=== PATIENT | female | born 1980 | race Caucasian/White ===

== ENCOUNTER 2020-01-21 01:45 | Emergency (ER) | payer OTHER, MEDICAID ==
[~2020-01-21] VITALS: Ht 165.1 cm; Wt 94.3 kg
--- NOTE | 2020-01-21 01:50 | NUR ---
Patient to ER bed 4 to gown for evaluation. Side rails up.
--- NOTE | 2020-01-21 01:50 | NUR ---
ER Dr. MENDEZ at bedside examining patient.
--- NOTE | 2020-01-21 01:55 | NUR ---
PT ARRIVES TO ER C/O FEELING ANXIOUS AND HAVING A PANIC ATTACK AFTER SMOKING TWO BLUNTS EARLIER TODAY. PT APPEARS TO BE ALERT AND ORIENTED X4 WITH RAPID SPEECH. NO ACUTE SIGNS OF DISTRESS. PT HX CKD, THYROID, AND DIABETES. NO OTHER MEDICAL COMPLAINTS AT THIS TIME.
--- NOTE | 2020-01-21 01:55 | NUR ---
Note dianaone in EDM - 01/21/20 at 0209 by LYNN PT ARRIVES TO ER C/O FEELING ANXIOUS AND HAVING A PANIC ATTACK AFTER SMOKING TWO BLUNTS EARLIER TODAY. PT HX CKD, THYROID, AND DIABETES. NO OTHER MEDICAL COMPLAINTS AT THIS TIME.
[2020-01-21 01:56] VITALS: BP_SYST 138
[2020-01-21] MEDS ORDERED: OLANZapine 5 MG TABLET PO ONE (02:00)
[2020-01-21] MEDS ORDERED: OLANZapine 5 MG TABLET ONE (02:22)
[2020-01-21 02:24] VITALS: BP_SYST 138
--- NOTE | 2020-01-21 02:24 | NUR ---
Patient given written and verbal discharge instructions and verbalizes understanding. ER MD discussed with patient the results and treatment provided. Patient in stable condition. ID arm band removed. Rx of ZYPREXA given. Patient educated on pain management and to follow up with PMD. Pain Scale 0/10. Opportunity for questions provided and answered. Medication side effect fact sheet provided.
== END 2020-01-21 02:24 | disposition home or self-care (01) ==
LOC: SED 01:45
DX: R06.4 Hyperventilation (principal); F41.9 Anxiety disorder, unspecified; F31.9 Bipolar disorder, unspecified; F17.210 Nicotine dependence, cigarettes, uncomplicated
CPT/HCPCS: 99283

== ENCOUNTER 2022-01-24 11:22 | Emergency (ER) | payer OTHER, MEDICAID ==
[~2022-01-24] VITALS: Ht 165.1 cm; Wt 100.7 kg
[2022-01-24 11:22] VITALS: BP_SYST 136
--- NOTE | 2022-01-24 11:22 | NUR ---
BROUGHT BACK TO BED #7 AND TRIAGED. REPORT GIVEN TO MIKE
--- NOTE | 2022-01-24 11:28 | NUR ---
PT STATES SHE HAD A MECHANICAL SLIP AND FALL LAST NIGHT, NOW WITH RIGHT KNEE AND ANKLE PAIN, ABRASIONS NOTED TO LEFT KNEE. PT IS AMBULATORY WITH STEADY GAIT. PT STATES SHE CAN NOT TAKE ANY NARCOTICS, SHE LIVES IN A SOBER LIVING AND IS SOBER FOR LAST 5 MONTHS.
--- NOTE | 2022-01-24 11:29 | NUR ---
ER at bedside examining patient.
--- NOTE | 2022-01-24 13:10 | NUR ---
DR VELÁSQUEZ AT BEDSIDE FOR RE-EVALUATION
[2022-01-24] MEDS ORDERED: TRAM50TA2 PO (13:32)
[2022-01-24] MEDS ORDERED: IBUP-1969 PO (13:32)
--- NOTE | 2022-01-24 13:50 | NUR ---
Patient given written and verbal discharge instructions and verbalizes understanding. ER MD discussed with patient the results and treatment provided. Patient in stable condition. ID arm band removed Rx of IBUPROFEN, TRAMADOL given. Patient educated on pain management and to follow up with PMD. Pain Scale 0/10. Opportunity for questions provided and answered. Medication side effect fact sheet provided.
== END 2022-01-24 13:50 | disposition home or self-care (01) ==
LOC: SED 11:22
DX: S83.91XA Sprain of unspecified site of right knee, initial encounter (principal); S93.401A Sprain of unspecified ligament of right ankle, initial encounter; W01.0XXA Fall on same level from slipping, tripping and stumbling without subsequent striking against object, initial encounter; Y93.89 Activity, other specified; Y92.89 Other specified places as the place of occurrence of the external cause; Y99.8 Other external cause status
CPT/HCPCS: 73564; 99284

== ENCOUNTER 2022-05-10 21:07 | Inpatient (IN) | payer OTHER, MEDICAID ==
[~2022-05-10] VITALS: Ht 165.1 cm; Wt 107.5 kg
[~2022-05-10 21:07] MED LIST: IBUP-1969 PO; TRAM50TA2 PO
[2022-05-10 21:16] VITALS: BP_SYST 148
--- NOTE | 2022-05-10 21:26 | NUR ---
Patient triaged and placed in rm 5. VSS and patient appears in no acute distress at this time. MD Ocampo notified of need for MSE. Report given to HORACE Taylor.
--- NOTE | 2022-05-10 21:30 | NUR ---
Poison control was called and spoke to Marixa with recommendations for lab work, UDA/UA, monitor for seizure activity, EKG and repeat x6 hours. MD Ocampo aware.
--- NOTE | 2022-05-10 21:38 | NUR ---
RECEIVED REPORT FROM CYBER SECURITY INSTRUCTOR. ARRIVED VIA EMS FROM FACILITY FOR POSSIBLE DRUG OVERDOSE. PER FACILITY PATIENT TOOK BENADRYL (UNKNOWN EXACT AMT). ALERT BUT INCOMPREHENSIBLE SPEECH NOTED. SHE IS ORIENTED TO NAME ONLY. POOR HISTORIAN. NUMEROUS ATTEMPTS TO GET OUT OF BED. REDIRECTED BACK TO BED. MD AT BEDSIDE. BED IN LOW POSITION, WHEELS LOCKED AND SR UP X 2 FOR SAFETY. WILL MONITOR. AWAITING MD ORDERS.
--- NOTE | 2022-05-10 21:56 | NUR ---
AMBULATORY W/ UNSTEADY GAIT AND 1 ASSIST TO PROVIDE UA. UA OBTAINED AND ASSISTED HER BACK TO STRETCHER. UA LABELED AND TAKEN TO LAB.
--- NOTE | 2022-05-10 22:08 | NUR ---
PATIENT REQUESTING SOMETHING TO DRINK. APPLE JUICE REQUESTED. ABLE TO TOLERATED 2 CUPS OF APPLE JUICE WITHOUT DIFFICULTY.
[2022-05-10 22:26] LABS: BILIRUBIN,URINE NEGATIVE (NEGATIVE); BLOOD, URINE NEGATIVE (NEGATIVE); CLARITY/URINE CLEAR (CLEAR); COLOR,URINE YELLOW (YELLOW); GLUCOSE,URINE NEGATIVE (NEGATIVE); KETONES,URINE TRACE (NEGATIVE); LEUKOCYTE ESTERASE ,URINE NEGATIVE (NEGATIVE); NITRITE, URINE NEGATIVE (NEGATIVE); PROTEIN URINE NEGATIVE (NEGATIVE); UROBILINOGEN,URINE 0.2 (0.2-1.0)
--- NOTE | 2022-05-10 22:34 | NUR ---
AMBULATORY TO AND FROM RESTROOM. GAIT UNSTEADY. RETURN BACK TO STRETCHER. BED IN LOW POSITION, WHEELS LOCKED AND SR UP X 2. REDIRECTION PROVIDED TO STAY ON STRETCHER FOR SAFETY. ALTHOUGH HER SPEECH IS SOMEWHAT INCOMPREHENSIBLE BUT SHE VERBALIZES UNDERSTANDING AND AGREES TO STAY ON STRETCHER.
[2022-05-10 22:45] LABS: BARBITURATE, URINE NEGATIVE (NEG <=200); BENZODIAZEPINE, URINE POSITIVE (NEG <=150); CANNABINOID, URINE NEGATIVE (NEG <=50); COCAINE, URINE NEGATIVE (NEG <=150); METHAMPHETAMINES SCREEN,URINE NEGATIVE (NEG <=500); URINE AMPHETAMINE NEGATIVE (NEG <=500); URINE METHADONE NEGATIVE (NEG <=200)
[2022-05-10 22:46] LABS: OPIATE, URINE NEGATIVE (NEG <=100); PHENCYCLIDINE SCREEN,URINE NEGATIVE (NEG <=25); UR TRICYCLIC ANTIDEPRESSANTS NEGATIVE (NEG <=300); URINE OXYCODONE SCREEN NEGATIVE (NEG <=100); URINE PROPOXYPHENE SCREEN NEGATIVE (NEG <=300)
[2022-05-10 22:48] LABS: HEMATOCRIT 40.8 % (36-48); MEAN CORPUSCULAR VOLUME 92 fL (79.0-98.0); PLATELET COUNT (AUTO) 327 K/uL (130-430); RED BLOOD CELL COUNT(AUTO) 4.44 MIL/uL (4.2-6.2); RED CELL DISTRIBUTION WIDTH 16.2 % (9.0-15.0)
--- NOTE | 2022-05-10 22:50 | NUR ---
PATIENT AMBULATORY TO BATHROOM WITH 1 ASSIST. WHILE THIS MARBLE POLISHER IS STANDING BY BATHROOM TO ALLOW PATIENT PRIVACY, PATIENT KNOCKING ON BATHROOM DOOR. UPON OPENING DOOR PATIENT NOTED TO BE SITTING ON FLOOR. STATES "I FELL." ASSISTED TO WHEELCHAIR VIA SECURITY. PATIENT ABLE TO STAND AND PIVOT TO WHEELCHAIR. NOTED DIME SIZE BRUISE TO RIGHT ANTERIOR KNEE. NO OBVIOUS DEFORMITY NOTED. NO OTHER INJURIES NOTED. SHE DENIES HITTING HER HEAD OR LOC. SHE IS ASSISTED BACK TO STRETCHER VIA SECURITY. ABLE TO STAND AND PIVOT BACK TO STRETCHER. WEALTH MANAGEMENT ADVISOR, ACETYLENE TORCH SOLDERER, AND MD AWARE. STRONGLY ENCOURAGE PATIENT NOT TO GET OUT OF BED. BED IN LOW POSITION, WHEELS LOCKED AND SR UP X 2. VSS. EKG BEING PERFORMED AT BEDSIDE. CAMERA ON TO OBSERVE CLOSELY. WILL CONTINUE TO MONITOR.
[2022-05-10 22:55] LABS: ANION GAP 16 (5-15); CALCIUM 8.3 mg/dL (8.4-11.0); CHLORIDE 104 mmol/L (98-107); CREATININE 2.76 mg/dL (0.55-1.30); GLUCOSE 238 mg/dL (70-99); POTASSIUM 3.5 mmol/L (3.5-5.1); UREA NITROGEN, BLOOD 30 mg/dL (8-21)
[2022-05-10 22:58] LABS: WHITE BLOOD COUNT (AUTO) 35.3 K/uL (4.8-10.8)
[2022-05-10 23:00] LABS: ALANINE AMINOTRANSFERASE 22 U/L (12-78); ALBUMIN 2.7 g/dL (3.4-4.8); ASPARTATE AMINOTRANSFERASE 21 U/L (10-37); GFR AFRICAN AMERICAN 24 mL/min (>90); TOTAL BILIRUBIN 0.3 mg/dL (0.0-1.0)
[2022-05-10 23:03] LABS: ACETAMINOPHEN < 1 ug/mL (1-30); ALCOHOL, BLOOD < 3 mg/dL (<10)
--- NOTE | 2022-05-10 23:13 | NUR ---
ENRIQUE SWABBED AND SENT TO LAB
[2022-05-10] MEDS ORDERED: NACL 0.9% 2,000 ML IV ONE (23:15)
[2022-05-10] MEDS ORDERED: PIPERACILLIN/TAZO 3.375 GM in NS 50 ML IV ONE (23:15)
[2022-05-10] MEDS ORDERED: PIPERACILLIN/TAZOBACTAM 3.375 GM/VIAL (ZOSYN) IV ONE (23:31)
[2022-05-10 23:47] LABS: BAND % (MANUAL) 17 % (0-6); LYMPHOCYTES % (MANUAL) 12 % (20-46)
[2022-05-10 23:48] LABS: BASOPHILS % (MANUAL) 0 % (0-2); EOSINOPHILS % (MANUAL) 0 % (0-7); METAMYELOCYTES % 4 % (0-0); MONOCYTES % (MANUAL) 3 % (0-11)
[2022-05-11] MEDS ORDERED: ASPIRIN 325 MG TABLET PO ONE
--- NOTE | 2022-05-11 00:52 | NUR ---
LAB AT BEDSIDE.
--- NOTE | 2022-05-11 00:54 | NUR ---
PT TRANSPORTED TO CT VIA STRETCHER VIA [facility].
--- NOTE | 2022-05-11 01:52 | NUR ---
PATIENT ATTEMTED TO GET OUT OF BED. BM ON STRETCHER AND ON PATIENT. BSC TO BEDSIDE. ASSISTED HER TO BSC. LARGE GREEN BM NOTED. PERICARE PROVIDED. ASSISTED BACK TO STRETCHER. BED IN LOW POSITION, WHEELS LOCKED AND SR UP X 2 FOR SAFETY. WILL MONITOR CLOSELY. Addendum: 05/11/22 at 0329 by [email or web address] PATIENT ATTEMPTS TO GET OUT OF BED. BM ON STRETCHER AND ON PATIENT. BSC TO BEDSIDE. ASSISTED HER TO BSC. LARGE GREEN BM NOTED. PERICARE PROVIDED. ASSISTED BACK TO STRETCHER. BED IN LOW POSITION, WHEELS LOCKED AND SR UP X 2 FOR SAFETY. WILL MONITOR CLOSELY.
--- NOTE | 2022-05-11 03:29 | NUR ---
ASSISTED TO BEDPAN. VOID NOTED. PERICARE PROVIDED. LYING SUPINE ON STRETCHER RESTING WITH EYES CLOSED. EASILY AROUSED. VSS. NAD NOTED AT THIS TIME. BED IN LOW POSITION, WHEELS LOCKED AND SR UP X2 FOR SAFETY. WILL CONTINUE TO MONITOR.
[2022-05-11] MEDS ORDERED: VANCOMYCIN HCL 1,000 MG in NS 250 ML IV ONE (04:00)
[2022-05-11] MEDS ORDERED: VANCOMYCIN HCL 1000 MG/VIAL IV ONE (04:09)
--- NOTE | 2022-05-11 04:14 | NUR ---
Admit bed requested Patient will be admitted to care of Admitted to Telemetry unit. Diagnosis Leukocytosis Inpatient (Yes or No) yes Observation (Yes or No) no Orientation concerns or request close to nursing station (Yes or No) yes Covid Status negative On vent or bipap no Isolation requirements no Needs a sitter no From Home (Yes or if No enter name of facility) no Requires Dialysis (Yes or No) no Med Rec Completed (Yes of No) unable to obtain
[2022-05-11 04:22] LABS: MEAN CORPUSCULAR VOLUME 92 fL (79.0-98.0); PLATELET COUNT (AUTO) 310 K/uL (130-430); RED BLOOD CELL COUNT(AUTO) 3.94 MIL/uL (4.2-6.2); RED CELL DISTRIBUTION WIDTH 16.2 % (9.0-15.0)
--- NOTE | 2022-05-11 04:26 | NUR ---
LAB CALLED TO REPORT CRITICAL WBC 35. AWARE. NO NEW ORDERS AT THIS TIME.
[2022-05-11] MEDS: D5/0.45 NS 1,000 ML IV SCH ×2 (04:32→17:03)
[2022-05-11 05:04] LABS: CALCIUM 7.6 mg/dL (8.4-11.0); CREATININE 2.23 mg/dL (0.55-1.30)
--- NOTE | 2022-05-11 05:15 | NUR ---
Patient will be admitted to care of admitting md. Admitted to tele unit. Will go to room 113b. Belongings list completed. Complete and up to date summary report printed. SBAR report to be given at bedside to beverly huerta with opportunity for questions.
[2022-05-11 05:34] VITALS: BP_SYST 143
--- NOTE | 2022-05-11 05:45 | NUR ---
pt.arrival via er-dept.pt.presents general status stable. respiratory status stable@room air.pt.presents psych hx.@present pt.awake,alert but withdrawn to q's.pt.presents iv access intact;patent.iv fluids infusing.no c/o pain,nausea.no requests posited@this hour.pt.oriented to unit/room.call light/telephone placed w/in access of the pt.
[2022-05-11] MEDS ORDERED: PIPERACILLIN/TAZO 3.375/DEX-IS 50 ML IV SCH (06:00)
[2022-05-11] MEDS ORDERED: PIPERACILLIN/TAZOBACTAM 3.375 GM/VIAL (ZOSYN) IV ONE (06:30)
[2022-05-11 08:00] VITALS: BP_SYST 127
--- NOTE | 2022-05-11 08:00 | NUR ---
INITIAL RECEIVED PATIENT A/O X3, ABLE TO VERBALIZES NEEDS, NO C/O PAIN/SOB, VITAL W/IN LIMITS. IV TO RIGHT HAND PATENT. PATIENT REPOSITION, CONTINUE TO MONITOR, CALL LIGHT W/IN REACHED AND BED IN LOW POSITION.
[2022-05-11] MEDS: PIPERACILLIN/TAZO 3.375/DEX-IS 50 ML IV SCH ×4 (08:14→23:22)
--- NOTE | 2022-05-11 10:30 | NUR ---
IV- Iv was out. Patient was very hard stick. Will inform MD.
--- NOTE | 2022-05-11 10:47 | NUR ---
MD Rounds Dr. Lockett here and making rounds.
[2022-05-11] MEDS ORDERED: OLAN20TA3 PO (11:25)
[2022-05-11] MEDS ORDERED: SER100 PO (11:25)
[2022-05-11] MEDS ORDERED: DIVA500T4 PO ×2 (11:25)
[2022-05-11] MEDS ORDERED: LAM100 PO (11:25)
[2022-05-11] MEDS ORDERED: NEU300 PO (11:25)
[2022-05-11] MEDS: DIVALPROEX SODIUM 500 MG TAB.SR.24H (DEPAKOTE ER) PO SCH ×2 (11:30→22:46)
[2022-05-11] MEDS ORDERED: POTASSIUM CHLORIDE 20 MEQ TAB.PRT.SR PO ONE (11:30)
[2022-05-11 11:41] VITALS: BP_SYST 116
[2022-05-11 11:41] LABS: PROTHROMBIN TIME 10.5 SECS (9.5-12.5)
--- NOTE | 2022-05-11 11:50 | NUR ---
CONSULTATION PAGED REASON FOR CONSULTATION ABDOMINAL PAIN WAS CONSULT CALED?Y PERSON WHO WAS NOTIFIED:REY CONSULTING PHYSICIAN:BUFFY OSWALD WASTE WATER PLANT OPERATOR SPECIALTY:GI WASTE WATER PLANT OPERATOR PHONE NUMBER:[phone] REQUESTING PHYSICIAN:JASON COYLE
[2022-05-11] MEDS ORDERED: DIVALPROEX SODIUM 500 MG TAB.SR.24H (DEPAKOTE ER) PO ONE (12:45)
[2022-05-11] MEDS ORDERED: POLYETHYLENE GLYCOL 3350, 17 GM/ POWD.PACK PO ONE (12:45)
--- NOTE | 2022-05-11 13:04 | NUR ---
Notes/laxative-Pt refused miralax, Patient has been having bowel movement since this morning.
--- NOTE | 2022-05-11 14:01 | NUR ---
Flatwork Assembler TILE MASON received referral to see pt. for possible OD on Benedryl while at her sober living home. TILE MASON introduced self to pt who was sitting upright on her bed eating lunch. Pt. was talking making sense and at times, and at other times she was not making sense. Additionally, pt was at times unable to form the words and would just speak without saying words. It should be noted pt. could not hold TILE MASON business card or her socks. Pt. would keep dropping them. Pt. stated she wanted to get out of the hospital. TILE MASON told her to stay so she can get well. Pt. mentioned she has 3 girls who reside with her mom and dad. They are ages 17 Tricia, a 19 year old and a 20 year old. Pt. stated she lives at [facility] for 15 years now. Then Pt. stated she goes to [facility] in the day and sees a therapist, Kimberly on , and Wed and sees a Psychiatrist . Dr. Arias. She walks or gets to [facility] by bus or walking. She resides at a sober living, could not recall the name. Pt thinks the name is [facility], address on Face Sheet. TILE MASON spoke to Gauri Ramirez to alert her to [facility] that pt. kept seeing "A man in the corner of the room" while TILE MASON was speaking to her. TILE MASON also shared with Ashley that pt. takes bipolar meds, but does not like the way they make her feel so she will stop taking them. Pt. took the Bendryl because she stated, "She wanted to sleep, but not kill self" and now she is upset because she had 8 months sobriety and now she has to start over again.
--- NOTE | 2022-05-11 14:15 | NUR ---
PSYCH CALLED TELE PSYCH CONSULT WAITING MD TO CALL BACK
[2022-05-11] MEDS: GABAPENTIN 300 MG CAPSULE PO SCH ×3 (14:24→22:46)
--- NOTE | 2022-05-11 15:24 | NUR ---
Notes/rounds Walking in he room with steady gait. Denies any pain at this time, still waiting for picc line nurse to come.
[2022-05-11 16:35] VITALS: BP_SYST 118
--- NOTE | 2022-05-11 18:13 | NUR ---
CLOSING NOTES PATIENT RESTING IN BED, NO C/O OF PAIN/SOB AT THIS TIME. PICC LINE INFUSING TO RIGHT UPPER ARM PATENT. ALL SAFETY MEASURES ARE IN PLACE. WILL CONTINUE TO MONITOR, AND ENDORSE TO ONCOMING NURSE.
--- NOTE | 2022-05-11 19:47 | NUR ---
RECEIVED PT STANDING AT EDGE OF BED, NO DISTRESS NOTED, DENIES PAIN. AAAOX4 RUE DOUBLE LUMEN PICC SITE CDI.
[2022-05-11 20:00] VITALS: BP_SYST 126
[2022-05-11] MEDS: OLANZapine 10 MG TAB.RAPDIS PO SCH (21:00)
[2022-05-11] MEDS: LamoTRIgine 100 MG TABLET PO SCH (22:47)
[2022-05-11] MEDS: QUEtiapine FUMARATE 100 MG TABLET PO SCH (22:47)
--- NOTE | 2022-05-11 22:47 | NUR ---
JASON ELIZABETH DR. AT THIS TIME Addendum: 05/11/22 at 2253 by Jase Gonsales RN DR. JOHNSON ANSWERS AT THIS TIME
--- NOTE | 2022-05-11 22:54 | NUR ---
2255: PT HR HAS BEEN BETWEEN 125-135 MICHELLE FELICIANO FOR CARDIZEM OR A BETA DAMIAN.
[2022-05-11] MEDS: DILTIAZEM HCL 30 MG TABLET PO SCH (23:33)
[2022-05-12] MEDS: D5/0.45 NS 1,000 ML IV SCH ×2 (00:15→10:15)
[2022-05-12 01:05] VITALS: BP_SYST 132
[2022-05-12] MEDS: PIPERACILLIN/TAZO 3.375/DEX-IS 50 ML IV SCH ×3 (05:47→18:16)
[2022-05-12] MEDS: DILTIAZEM HCL 30 MG TABLET PO SCH ×3 (05:52→22:06)
[2022-05-12 07:21] LABS: BASOPHILS # (AUTO) 0.1 K/uL (0.0-0.2); BASOPHILS % (AUTO) 0.3 % (0.0-2.0); EOSINOPHILS # (AUTO) 0.1 K/uL (0.0-0.4); EOSINOPHILS % (AUTO) 0.3 % (0.0-4.0); HEMATOCRIT 33.6 % (36-48); LYMPHOCYTES # (AUTO) 2.4 K/uL (1.0-5.5); LYMPHOCYTES % (AUTO) 9.1 % (20.5-51.5); MEAN CORPUSCULAR VOLUME 92 fL (79.0-98.0); MONOCYTES # (AUTO) 2.4 K/uL (0.0-1.0); MONOCYTES % (AUTO) 9.4 % (1.7-9.3); NEUTROPHILS # (AUTO) 20.9 K/uL (1.8-7.7); NEUTROPHILS % (AUTO) 80.9 % (40.0-70.0); PLATELET COUNT (AUTO) 228 K/uL (130-430); RED BLOOD CELL COUNT(AUTO) 3.64 MIL/uL (4.2-6.2); RED CELL DISTRIBUTION WIDTH 15.9 % (9.0-15.0); WHITE BLOOD COUNT (AUTO) 25.9 K/uL (4.8-10.8)
[2022-05-12 08:05] LABS: CALCIUM 8.2 mg/dL (8.4-11.0); CREATININE 2.2 mg/dL (0.55-1.30)
[2022-05-12 08:56] LABS: POTASSIUM 2.9 mmol/L (3.5-5.1)
[2022-05-12] MEDS: LamoTRIgine 100 MG TABLET PO SCH ×2 (09:00→22:05)
[2022-05-12] MEDS: GABAPENTIN 300 MG CAPSULE PO SCH ×2 (09:00→22:07)
[2022-05-12] MEDS: POLYETHYLENE GLYCOL 3350, 17 GM/ POWD.PACK PO SCH (09:00)
[2022-05-12] MEDS: DIVALPROEX SODIUM 500 MG TAB.SR.24H (DEPAKOTE ER) PO SCH ×2 (09:01→22:06)
[2022-05-12 09:04] LABS: ERYTHROCYTE SEDIMENTATION RATE 32 MM/HR (0-20)
[2022-05-12] MEDS ORDERED: KCL 40 mEq in 100 mL (PREMIX) 100 ML IV ONE (09:15)
[2022-05-12 09:44] LABS: C-REACTIVE PROTEIN QUANT 38.1 mg/dL (0-0.5)
[2022-05-12] MEDS ORDERED: PANTOPRAZOLE SODIUM 40 MG/VIAL (PROTONIX) IVP ONE (10:30)
[2022-05-12] MEDS: OLANZapine 10 MG TAB.RAPDIS PO SCH ×2 (11:41→22:05)
[2022-05-12 12:00] VITALS: BP_SYST 132
--- NOTE | 2022-05-12 12:36 | NUR ---
PATIENT IS AT HER BASELINE LEVEL OF INDEPENDENT FUNCTIONAL MOBILITY. SHE IS SAFE TO CONTINUE TO AMBULATE AND TRANSFER WITH NURSING SUPERVISION. NO NEED FOR FURTHER PHYSICAL THERAPY.
[2022-05-12 19:30] VITALS: BP_SYST 139
--- NOTE | 2022-05-12 19:40 | NUR ---
PM ASSESSMENT; -Pt is a/ox4, resting in bed. Pt denies any chest pain,pain,sob,or any cute distress. NATASHA PICC LINE patent,no s/s any infiltration noted. Discussed poc, NPO after midnight for EGD, she verbalize understanding. Fall precaution in place. Bed alarmed, side rails x3,call light w/in reach. Cont to monitor pt.
[2022-05-12] MEDS: QUEtiapine FUMARATE 100 MG TABLET PO SCH (22:05)
[2022-05-13] VITALS: BP_SYST 134
--- NOTE | 2022-05-13 | NUR ---
ROUNDS; NPO STATUS -Pt is resting in bed. Pt denies any chest pain,pain,sob,or any cute distress. VSS. IVF infusing well. Kept pt NPO status now for EGD tomorrow, she verbalize understanding. Fall precaution in place. Bed alarmed, side rails x3,call light w/in reach. Cont to monitor pt.
[2022-05-13] MEDS: PIPERACILLIN/TAZO 3.375/DEX-IS 50 ML IV SCH ×5 (01:47→23:43)
[2022-05-13] MEDS: D5/0.45 NS 1,000 ML IV SCH ×3 (01:48→17:01)
--- NOTE | 2022-05-13 04:19 | NUR ---
ROUNDS; -Pt is asleep. NO s/s any acute distress noted. Fall precaution in place. Bed alarmed, side rails x3,call light w/in reach. Cont to monitor pt.
[2022-05-13] MEDS: DILTIAZEM HCL 30 MG TABLET PO SCH ×3 (06:00→21:51)
--- NOTE | 2022-05-13 06:15 | NUR ---
NOTES; Pt is resting in bed comfortably. VS bp-116/75,101. pt signed EGD consent form. still NPO since midnight.
--- NOTE | 2022-05-13 06:48 | NUR ---
CLOSING NOTES; -Pt is resting in bed. Pt denies any chest pain,pain,sob,or any cute distress. NATASHA PICC LINE patent,no s/s any infiltration noted. Fall precaution in place. Bed alarmed, side rails x3,call light w/in reach. Will endorse to next nurse to cont care.
[2022-05-13] MEDS ORDERED: SIMETHICONE 40 MG/0.6 ML ML ONE (06:52)
[2022-05-13] MEDS ORDERED: MEPERIDINE 100 MG INJ. 100 MG/ML VIAL ONE (06:52)
[2022-05-13 07:30] LABS: BASOPHILS # (AUTO) 0.1 K/uL (0.0-0.2); BASOPHILS % (AUTO) 0.4 % (0.0-2.0); EOSINOPHILS # (AUTO) 0.1 K/uL (0.0-0.4); EOSINOPHILS % (AUTO) 0.5 % (0.0-4.0); HEMATOCRIT 33.1 % (36-48); LYMPHOCYTES # (AUTO) 2.8 K/uL (1.0-5.5); LYMPHOCYTES % (AUTO) 13.2 % (20.5-51.5); MEAN CORPUSCULAR HEMOGLOBIN 30 pg (27-31); MEAN CORPUSCULAR HGB CONC 33 % (32-36); MEAN CORPUSCULAR VOLUME 91 fL (79.0-98.0); MONOCYTES # (AUTO) 1.2 K/uL (0.0-1.0); MONOCYTES % (AUTO) 5.8 % (1.7-9.3); NEUTROPHILS # (AUTO) 16.8 K/uL (1.8-7.7); NEUTROPHILS % (AUTO) 80.1 % (40.0-70.0); PLATELET COUNT (AUTO) 211 K/uL (130-430); RED BLOOD CELL COUNT(AUTO) 3.62 MIL/uL (4.2-6.2); RED CELL DISTRIBUTION WIDTH 15.4 % (9.0-15.0)
--- NOTE | 2022-05-13 07:30 | NUR ---
Report received from weld engineer RN for continuity of care. No distress noted.
[2022-05-13 07:47] VITALS: BP_SYST 136
[2022-05-13 07:47] LABS: INR 0.9 (0.8-1.2); PROTHROMBIN TIME 9.2 SECS (9.5-12.5)
[2022-05-13] MEDS: MIDAZOLAM HCL 5 MG/5 ML VIAL ONE ×2 (07:48→07:50)
--- NOTE | 2022-05-13 08:27 | NUR ---
Report received from HORACE Sultana for continuity of care. Patient coming back from GI lab.
[2022-05-13] MEDS: POLYETHYLENE GLYCOL 3350, 17 GM/ POWD.PACK PO SCH (09:00)
[2022-05-13 09:31] LABS: ALBUMIN 1.9 g/dL (3.4-4.8); CALCIUM 8.3 mg/dL (8.4-11.0); CREATININE 1.78 mg/dL (0.55-1.30); PHOSPHORUS 2.6 mg/dL (2.7-4.5); POTASSIUM 3.4 mmol/L (3.5-5.1); TOTAL BILIRUBIN 0.3 mg/dL (0.0-1.0)
--- NOTE | 2022-05-13 09:49 | NUR ---
Spoke with Dr. Galan, ACOSTA, regarding patient. Patient to have procalcitonin lab add on for today if possible and blood cultures tomorrow. If lab needs to draw procalcitonin today then have blood cultures as well.
[2022-05-13] MEDS ORDERED: OLANZapine 10 MG TABLET ONE (10:02)
[2022-05-13] MEDS: GABAPENTIN 300 MG CAPSULE PO SCH ×3 (10:06→20:53)
[2022-05-13] MEDS: PANTOPRAZOLE SODIUM 40 MG/VIAL (PROTONIX) IVP SCH (10:06)
[2022-05-13] MEDS: OLANZapine 10 MG TAB.RAPDIS PO SCH ×2 (10:07→21:00)
[2022-05-13] MEDS: LamoTRIgine 100 MG TABLET PO SCH ×2 (10:08→20:53)
[2022-05-13] MEDS: DIVALPROEX SODIUM 500 MG TAB.SR.24H (DEPAKOTE ER) PO SCH ×2 (10:32→21:38)
[2022-05-13 11:18] LABS: ERYTHROCYTE SEDIMENTATION RATE 45 MM/HR (0-20)
--- NOTE | 2022-05-13 11:30 | NUR ---
RADIO ENGINEERING TEACHER In an effort to obtain and confirm information related to patient's mental health history, [facility] contacted [place] . According to Ashanti with [facility] department, patient was discharged from inpatient services on 05/08/2200 and transitioned to [facility] independent living . She shared patient was diagnosed with Schizoaffective Disorder Bipolar type. She was on a 5150 hold due to suicidal thoughts.
[2022-05-13 12:00] VITALS: BP_SYST 128
--- NOTE | 2022-05-13 12:01 | NUR ---
CARDIOVASCULAR RADIOLOGIC TECHNOLOGIST ACSW Brandy responded to a request for Social Service support to address psych recommendation for 5150 hold. ACSW Brandy met with patient at bedside. ACSW completed introduction, reason for referral, provided business card, and patient was open to contact. Mental health- Patient confirms Schizoaffective Disorder, struggled to discuss medication regimen. Thought Content- Auditory and Visual Hallucinations. "Some one is standing right there". Thought Process- Circumstantial ACSW discussed psych recommendations for 5150 hold with patient. Patient was agreeable. ACSW and Patient discussed "reality testing", and she shared she will ask others around her if they "see the people". ACSW discussed the need to wait for patient to be medically stable before transport to Psych facility. Patient provided permission to contact her mother Karen German . ACSW will address transfer to psych and contact psych for 5150 when patient is medically stable. ACSW will continue to be available as needed.
[2022-05-13 12:38] LABS: C-REACTIVE PROTEIN QUANT 25.9 mg/dL (0-0.5)
--- NOTE | 2022-05-13 15:07 | NUR ---
Dr. Chambers, ID, notified regarding patient's procalcitonin lab values. Awaiting further direction.
[2022-05-13 16:00] VITALS: BP_SYST 132
[2022-05-13] MEDS: DOCUSATE SODIUM 100 MG CAPSULE PO PRN ×2 (17:00→20:53)
--- NOTE | 2022-05-13 19:20 | NUR ---
RECEIVED PTS REPORT , RESTING IN BED AND DENIES PAIN.SHE IS ALERT AND ORIENTED X 4. HAS IVF @75 ML IN PROGRESS VITALS DONE WNL
--- NOTE | 2022-05-13 19:30 | NUR ---
Report given to assistant shift supervisor RN for continuity of care. No distress.
[2022-05-13 20:00] VITALS: BP_SYST 143
[2022-05-13] MEDS: QUEtiapine FUMARATE 100 MG TABLET PO SCH (20:53)
--- NOTE | 2022-05-14 | NUR ---
PT ASLEEP .NO ABNORMAL BEHAVIOR OBSERVED
[2022-05-14] MEDS: D5/0.45 NS 1,000 ML IV SCH ×3 (02:48→22:43)
[2022-05-14] MEDS: PIPERACILLIN/TAZO 3.375/DEX-IS 50 ML IV SCH ×3 (05:33→18:10)
[2022-05-14] MEDS: DILTIAZEM HCL 30 MG TABLET PO SCH ×3 (05:35→20:20)
--- NOTE | 2022-05-14 06:00 | NUR ---
IVF IN PROGRESS DUE MEDICATION ADMINISTERED
[2022-05-14 07:21] LABS: BASOPHILS # (AUTO) 0.1 K/uL (0.0-0.2); BASOPHILS % (AUTO) 0.4 % (0.0-2.0); EOSINOPHILS # (AUTO) 0.2 K/uL (0.0-0.4); EOSINOPHILS % (AUTO) 1.4 % (0.0-4.0); HEMATOCRIT 32.5 % (36-48); LYMPHOCYTES # (AUTO) 3.1 K/uL (1.0-5.5); LYMPHOCYTES % (AUTO) 23.2 % (20.5-51.5); MEAN CORPUSCULAR HEMOGLOBIN 30 pg (27-31); MEAN CORPUSCULAR HGB CONC 34 % (32-36); MEAN CORPUSCULAR VOLUME 90 fL (79.0-98.0); MONOCYTES # (AUTO) 0.9 K/uL (0.0-1.0); MONOCYTES % (AUTO) 6.7 % (1.7-9.3); NEUTROPHILS # (AUTO) 9.3 K/uL (1.8-7.7); NEUTROPHILS % (AUTO) 68.3 % (40.0-70.0); PLATELET COUNT (AUTO) 233 K/uL (130-430); RED BLOOD CELL COUNT(AUTO) 3.61 MIL/uL (4.2-6.2); RED CELL DISTRIBUTION WIDTH 15.7 % (9.0-15.0); WHITE BLOOD COUNT (AUTO) 13.6 K/uL (4.8-10.8)
[2022-05-14 07:55] LABS: ALBUMIN 1.8 g/dL (3.4-4.8); C-REACTIVE PROTEIN QUANT 14.7 mg/dL (0-0.5); CALCIUM 8.1 mg/dL (8.4-11.0); CREATININE 1.92 mg/dL (0.55-1.30); PHOSPHORUS 3.7 mg/dL (2.7-4.5); POTASSIUM 3.1 mmol/L (3.5-5.1); TOTAL BILIRUBIN 0.2 mg/dL (0.0-1.0)
--- NOTE | 2022-05-14 08:00 | NUR ---
MORNING ROUNDS: PATIENT SLEEPING DURING ROUNDS. RIGHT UPPER ARM PICC LINE,DRESSING CLEAN AND DRY. CALL LIGHT WITH IN REACH. BED LOCKED AT LOWEST POSITION. STABLE.
[2022-05-14 08:30] VITALS: BP_SYST 142
[2022-05-14] MEDS: POLYETHYLENE GLYCOL 3350, 17 GM/ POWD.PACK PO SCH (09:00)
[2022-05-14] MEDS: PANTOPRAZOLE SODIUM 40 MG/VIAL (PROTONIX) IVP SCH (09:28)
[2022-05-14] MEDS: DIVALPROEX SODIUM 500 MG TAB.SR.24H (DEPAKOTE ER) PO SCH ×2 (09:28→20:34)
[2022-05-14] MEDS: LamoTRIgine 100 MG TABLET PO SCH ×2 (09:28→20:19)
[2022-05-14] MEDS: GABAPENTIN 300 MG CAPSULE PO SCH ×3 (09:28→20:20)
[2022-05-14] MEDS: OLANZapine 10 MG TAB.RAPDIS PO SCH ×2 (09:36→21:00)
[2022-05-14] MEDS ORDERED: DICYCLOMINE HCL 10 MG CAPSULE PO ONE (11:45)
[2022-05-14 11:46] LABS: ERYTHROCYTE SEDIMENTATION RATE 43 MM/HR (0-20)
[2022-05-14 11:49] VITALS: BP_SYST 128
[2022-05-14] MEDS: DICYCLOMINE HCL 10 MG CAPSULE PO SCH ×2 (15:42→20:20)
[2022-05-14 15:47] VITALS: BP_SYST 119
--- NOTE | 2022-05-14 16:56 | NUR ---
HIGH ALERT NOTE: Called back at his identified within the medical roster to verify physician authenticity.
--- NOTE | 2022-05-14 16:57 | NUR ---
POTASSIUM PO: SPOKE WITH DR Peter JOHNSON WITH ORDERS GIVE K-DUR 40MEQ PO ONCE FOR 3.1 LEVEL OF POTASSIUM.
--- NOTE | 2022-05-14 17:00 | NUR ---
RN NOTES: SPOKE TO PATIENT REGARDING INSERTION OF SERRANO ORDERED BY NEPHRO BUT PATIENT WANTED TO ASKED HER DAD AND MOM'S OPINION ABOUT SERRANO PLACEMENT.WILL ENDORSED TO NIGHT NURSE SOON SHE DECIDES.PATIENT VOIDING FREELY WITHOUT ANY PROBLEM.
--- NOTE | 2022-05-14 17:05 | NUR ---
Dietitian Recommendations * Mechanical soft diet, Banatrol BID (prebiotic fibers to help bulk stool d/t pt's report of diarrhea) LP, MS, RD Please refer to Nutrition F/U for details. Addendum: 05/15/22 at [address] Amended: Links added.
[2022-05-14] MEDS ORDERED: POTASSIUM CHLORIDE 20 MEQ TAB.PRT.SR PO ONE (17:45)
--- NOTE | 2022-05-14 18:35 | NUR ---
EVENING ROUNDS: PATIENT HAD DINNER. IV FLUIDS RUNNING WELL AT RIGHT UPPER ARM INTACT. CALL LIGHT WITH IN REACH. BED LOCKED AT LOWEST POSITION. CONDITION GUARDED.
[2022-05-14 20:00] VITALS: BP_SYST 130
[2022-05-14] MEDS: QUEtiapine FUMARATE 100 MG TABLET PO SCH (20:32)
[2022-05-15 00:07] VITALS: BP_SYST 127
[2022-05-15] MEDS: PIPERACILLIN/TAZO 3.375/DEX-IS 50 ML IV SCH ×5 (00:09→23:39)
[2022-05-15] MEDS: IBUPROFEN 600 MG TABLET PO PRN ×2 (02:21→16:36)
[2022-05-15] MEDS: DILTIAZEM HCL 30 MG TABLET PO SCH ×3 (04:29→20:36)
--- NOTE | 2022-05-15 05:54 | NUR ---
Patient in bed. No acute distress noted. Will continue to monitor.
[2022-05-15 07:08] LABS: BASOPHILS # (AUTO) 0.1 K/uL (0.0-0.2); BASOPHILS % (AUTO) 0.4 % (0.0-2.0); EOSINOPHILS # (AUTO) 0.2 K/uL (0.0-0.4); EOSINOPHILS % (AUTO) 1.7 % (0.0-4.0); HEMATOCRIT 33.1 % (36-48); HEMOGLOBIN 11.3 g/dL (12.0-16.0); LYMPHOCYTES # (AUTO) 2.7 K/uL (1.0-5.5); LYMPHOCYTES % (AUTO) 18.5 % (20.5-51.5); MEAN CORPUSCULAR HEMOGLOBIN 31 pg (27-31); MEAN CORPUSCULAR HGB CONC 34 % (32-36); MEAN CORPUSCULAR VOLUME 90 fL (79.0-98.0); MONOCYTES # (AUTO) 1.9 K/uL (0.0-1.0); MONOCYTES % (AUTO) 13.2 % (1.7-9.3); NEUTROPHILS # (AUTO) 9.6 K/uL (1.8-7.7); NEUTROPHILS % (AUTO) 66.2 % (40.0-70.0); PLATELET COUNT (AUTO) 240 K/uL (130-430); RED BLOOD CELL COUNT(AUTO) 3.68 MIL/uL (4.2-6.2); RED CELL DISTRIBUTION WIDTH 15.5 % (9.0-15.0); WHITE BLOOD COUNT (AUTO) 14.5 K/uL (4.8-10.8)
--- NOTE | 2022-05-15 07:20 | NUR ---
RN OPENING NOTE REPORT WAS ENDORSED BY NIGHT NURSE. PATIENT APPEARS TO BE RESTING WITH BOTH EYES CLOSED NO SIGNS OF ANY DISTRESS. BREATHING IS EQUAL AND NON LABORED, VISIBLE SIGNS OF BREATHING. PATIENT HAS CALL LIGHT WITH IN REACH NO OTHER NEEDS AT THIS TIME.
[2022-05-15 08:00] VITALS: BP_SYST 121
[2022-05-15] MEDS: D5/0.45 NS 1,000 ML IV SCH ×3 (08:15→23:40)
[2022-05-15 08:31] LABS: ALBUMIN 1.8 g/dL (3.4-4.8); C-REACTIVE PROTEIN QUANT 12.6 mg/dL (0-0.5); CALCIUM 8.7 mg/dL (8.4-11.0); CREATININE 1.85 mg/dL (0.55-1.30); PHOSPHORUS 4.5 mg/dL (2.7-4.5); POTASSIUM 3.8 mmol/L (3.5-5.1); TOTAL BILIRUBIN 0.2 mg/dL (0.0-1.0)
[2022-05-15 09:52] LABS: ERYTHROCYTE SEDIMENTATION RATE 40 MM/HR (0-20)
[2022-05-15] MEDS: POLYETHYLENE GLYCOL 3350, 17 GM/ POWD.PACK PO SCH ×2 (10:22→10:24)
[2022-05-15] MEDS: GABAPENTIN 300 MG CAPSULE PO SCH ×3 (10:23→20:36)
[2022-05-15] MEDS: OLANZapine 10 MG TAB.RAPDIS PO SCH ×2 (10:23→21:00)
[2022-05-15] MEDS: DIVALPROEX SODIUM 500 MG TAB.SR.24H (DEPAKOTE ER) PO SCH ×2 (10:23→20:35)
[2022-05-15] MEDS: DICYCLOMINE HCL 10 MG CAPSULE PO SCH ×3 (10:23→20:36)
[2022-05-15] MEDS: LamoTRIgine 100 MG TABLET PO SCH ×2 (10:23→20:36)
[2022-05-15] MEDS: PANTOPRAZOLE SODIUM 40 MG/VIAL (PROTONIX) IVP SCH (10:23)
--- NOTE | 2022-05-15 10:30 | NUR ---
MEDICATION PATIENTS SCHEDULED MEDICATION GIVEN PER ORDER. Addendum: 05/15/22 at 1937 by France Saavedra RN PATIENT EDUCATED NEWSCAST PRODUCER LIGHT FOR ASSISTANCE. CALL LIGHT IS WITH HER. PATIENT HAS NO COMPLAINTS AT THIS TIME. PATIENT PROVIDED WITH 2 APPLE JUICES REQUEST. PATIENT HAS NO OTHER NEEDS AT THIS TIME.
[2022-05-15 11:32] VITALS: BP_SYST 125
[2022-05-15] MEDS ORDERED: LACTOBACILLUS RHAMNOSUS GG 1 CAP CAPSULE PO ONE (12:00)
[2022-05-15] MEDS ORDERED: metroNIDAZOLE 500 mg/NS 100 ML IV ONE (12:00)
[2022-05-15] MEDS ORDERED: SACCHAROMYCES BOULARDII 250 MG CAPSULE (FLORASTOR) PO SCH (12:00)
--- NOTE | 2022-05-15 12:13 | NUR ---
medication Addendum: 05/15/22 at 1936 by France Saavedra RN PATIENT SCHEDULED MEDICATION GIVEN PER ORDER. PATIENT IS AWAKE AND ALERT SITTING IN BED TOLERATED MEDICATION WELL. NO OTHER NEEDS AT THIS TIME. CALL LIGHT IS WITH HER. EDUCATED TO USE FOR ASSISTANCE.
--- NOTE | 2022-05-15 13:05 | NUR ---
CM: per dr. Galan, the pt does not need bone scan/Indium WBC. CM cancelled the order per md request. Dr Lockett made aware.
--- NOTE | 2022-05-15 14:04 | NUR ---
CM: faxed [phone] copy and the inpatient placement referral to [facility], attn intake fax # [phone], tel [phone]. Addendum: 05/15/22 at 1415 by Tawanna Potter RN Per ahmet Cameron confirmed receipt the referral package. The case is being reviewed, she will call back with the admission/acceptance info.
[2022-05-15] MEDS: traMADol HCL HCL 50 MG TABLET (ULTRAM) PO PRN (14:20)
--- NOTE | 2022-05-15 14:21 | NUR ---
medication patients scheduled medication given per order. patient is awake and alert laying in bed, complains of pain medicated per order. patient is aware waiting for robert sample. patient educated construction equipment mechanic helper light for assistance. call light is with her no other needs at this time.
[2022-05-15] MEDS: metroNIDAZOLE 500 mg/NS 100 ML IV SCH ×2 (15:08→20:34)
[2022-05-15 15:29] VITALS: BP_SYST 111
--- NOTE | 2022-05-15 16:18 | NUR ---
CM: Jammie [facility]. [facility]: received call from Berhane/ahmet saying that dr. Lepe request pt admitting there. CM faxed the referral to fax # [phone] and to # [phone], tel # [phone]. Per Berhane, " Will take the patient tonight pending insurance and chart review". She will call nursing unit x [phone] with bed assignment. DC package placed in nursing unit. >> AMBULANCE: "WILL CALL" BOOKED WITH [facility], [facility], # [phone] . HARDEEP Fernández made aware.
--- NOTE | 2022-05-15 16:36 | NUR ---
PAIN MEDICATION PATIENTS SCHEDULED MEDICATION GIVEN PER ODER. PATIENT STATES THAT SHE FELT HER PAIN WAS GETTING BETTER BUT IT IS NOT AND WOULD NOW LIKE SOMETHING FOR IT. EDUCATED PIPE SMOKING MACHINE OPERATOR LIGHT FOR ASSISTANCE. CALL LIGHT IS WITH HER.
--- NOTE | 2022-05-15 18:51 | NUR ---
RN CLOSING NOTE PATIENT IS AWAKE AND SITTING IN BED ON PHONE TALKING WITH FAMILY. PATIENT HAS CALL LIGHT IS WITH HER EDUCATED TO USE FOR ASSISTANCE. PATIENT HAS NO COMPLAINTS AT THIS TIME. PATIENTS SCHEDULED MEDICATION GIVEN PER ORDER. NO OTHER NEEDS AT THIS TIME. PATIENT IS AWARE OF DISCHARGE ORDER. Addendum: 05/15/22 at 1935 by France Saavedra RN SPOKE WITH FACILITY REGARDING DIARRHEA AND ORDERS FOR COLLECTION THEY STATE THEY WILL NOT TAKE HER WITH PENDING TEST. INFORMED NIGHT NURSE AND CHARGE NURSE.
[2022-05-15 20:00] VITALS: BP_SYST 114
[2022-05-15] MEDS: LACTOBACILLUS RHAMNOSUS GG 1 CAP CAPSULE PO SCH (20:35)
[2022-05-15] MEDS: QUEtiapine FUMARATE 100 MG TABLET PO SCH (20:36)
[2022-05-16 01:17] VITALS: BP_SYST 112
[2022-05-16] MEDS: PIPERACILLIN/TAZO 3.375/DEX-IS 50 ML IV SCH ×4 (04:58→23:43)
[2022-05-16] MEDS: DILTIAZEM HCL 30 MG TABLET PO SCH ×3 (04:59→21:01)
[2022-05-16] MEDS: metroNIDAZOLE 500 mg/NS 100 ML IV SCH ×3 (04:59→21:01)
[2022-05-16 06:40] LABS: BASOPHILS # (AUTO) 0.1 K/uL (0.0-0.2); BASOPHILS % (AUTO) 0.7 % (0.0-2.0); EOSINOPHILS # (AUTO) 0.4 K/uL (0.0-0.4); EOSINOPHILS % (AUTO) 2.3 % (0.0-4.0); HEMATOCRIT 34.4 % (36-48); HEMOGLOBIN 11.6 g/dL (12.0-16.0); LYMPHOCYTES # (AUTO) 2.9 K/uL (1.0-5.5); LYMPHOCYTES % (AUTO) 18.2 % (20.5-51.5); MEAN CORPUSCULAR HEMOGLOBIN 31 pg (27-31); MEAN CORPUSCULAR HGB CONC 34 % (32-36); MEAN CORPUSCULAR VOLUME 90 fL (79.0-98.0); MONOCYTES # (AUTO) 2.1 K/uL (0.0-1.0); MONOCYTES % (AUTO) 13.5 % (1.7-9.3); NEUTROPHILS # (AUTO) 10.3 K/uL (1.8-7.7); NEUTROPHILS % (AUTO) 65.3 % (40.0-70.0); PLATELET COUNT (AUTO) 317 K/uL (130-430); RED BLOOD CELL COUNT(AUTO) 3.81 MIL/uL (4.2-6.2); RED CELL DISTRIBUTION WIDTH 15.5 % (9.0-15.0); WHITE BLOOD COUNT (AUTO) 15.8 K/uL (4.8-10.8)
[2022-05-16 07:59] LABS: C-REACTIVE PROTEIN QUANT 16.3 mg/dL (0-0.5); CALCIUM 8.1 mg/dL (8.4-11.0); CREATININE 1.89 mg/dL (0.55-1.30); PHOSPHORUS 3.6 mg/dL (2.7-4.5); POTASSIUM 3.7 mmol/L (3.5-5.1)
[2022-05-16 08:00] VITALS: BP_SYST 116
[2022-05-16] MEDS: PANTOPRAZOLE SODIUM 40 MG/VIAL (PROTONIX) IVP SCH (08:47)
[2022-05-16] MEDS: OLANZapine 10 MG TAB.RAPDIS PO SCH ×2 (08:48→21:00)
[2022-05-16] MEDS: GABAPENTIN 300 MG CAPSULE PO SCH ×3 (08:48→20:53)
[2022-05-16] MEDS: LACTOBACILLUS RHAMNOSUS GG 1 CAP CAPSULE PO SCH ×2 (08:48→20:53)
[2022-05-16] MEDS: DICYCLOMINE HCL 10 MG CAPSULE PO SCH ×3 (08:48→20:53)
[2022-05-16] MEDS: LamoTRIgine 100 MG TABLET PO SCH ×2 (08:49→20:53)
[2022-05-16 09:18] LABS: ERYTHROCYTE SEDIMENTATION RATE 43 MM/HR (0-20)
--- NOTE | 2022-05-16 09:47 | NUR ---
[facility] [place] [phone] : per Bienvenido, the pt is accepted and expecting bed availability this afternoon. He will call back once the bed is ready. Addendum: 05/16/22 at 1333 by Tawanna Potter RN F/U bed assignment: s/w Josefa /intake: unable to release bed, she requested Cdiff clarification. Informed the pt was on laxative ( now on hold), BM x1 this am, per HORACE Raphael : no need to collect specimen and he will clarify Cdiff status with ID and attending.
[2022-05-16] MEDS: DIVALPROEX SODIUM 500 MG TAB.SR.24H (DEPAKOTE ER) PO SCH ×2 (10:06→20:56)
[2022-05-16] MEDS ORDERED: CAR30 PO (10:58)
[2022-05-16] MEDS ORDERED: DICY10CA13 PO (10:58)
[2022-05-16] MEDS ORDERED: DOCU-144 PO (10:58)
[2022-05-16] MEDS ORDERED: METR-154 PO (10:58)
[2022-05-16] MEDS ORDERED: LACT1CAP57 PO (10:58)
[2022-05-16] MEDS ORDERED: AUG875 PO (10:58)
[2022-05-16 14:12] VITALS: BP_SYST 109
[2022-05-16] MEDS: D5/0.45 NS 1,000 ML IV SCH ×2 (14:24→23:43)
[2022-05-16 16:56] VITALS: BP_SYST 119
--- NOTE | 2022-05-16 18:53 | NUR ---
Shifty summary: patient AAOX4. vitals are stable. informed physician patient has been getting antibiotics and laxatives and that C.diff collection is contraindicated. physician aware and states c.diff collection is not needed. patient currently resting. will endorse to oncoming nurse. call light within reach. bed set to low and locked.
[2022-05-16] MEDS: QUEtiapine FUMARATE 100 MG TABLET PO SCH (20:53)
--- NOTE | 2022-05-16 21:30 | NUR ---
Received report from FER Ruiz and assumed patient care. Educated the patient about the use of call light if in need of assistance, and provided education about the plan of care. Patient understands teaching and will reinforce if needed throughout the shift.
--- NOTE | 2022-05-16 22:00 | NUR ---
Informed the patient to call primary RN, in order to obtain stool sample on a clean bedside commode bates. Patient understands teaching and will call primary RN if patient goes to the bedside commode to collect sample.
--- NOTE | 2022-05-17 | NUR ---
Patient had a bowel movement per INSURANCE DEFENSE ATTORNEY, and per INSURANCE DEFENSE ATTORNEY stool was mixed with urine and unable to obtain sample will try again later. Educated the patient again and patient will call INSURANCE DEFENSE ATTORNEY or primary RN again.
[2022-05-17 00:26] VITALS: BP_SYST 131
--- NOTE | 2022-05-17 03:00 | NUR ---
Patient had a bowel movement per MERCHANDISE FLOW ASSOCIATE, and per MERCHANDISE FLOW ASSOCIATE stool was mixed with urine once again and unable to obtain sample will try again later.
[2022-05-17] MEDS: PIPERACILLIN/TAZO 3.375/DEX-IS 50 ML IV SCH ×3 (05:12→17:55)
[2022-05-17] MEDS: DILTIAZEM HCL 30 MG TABLET PO SCH ×3 (05:13→21:41)
[2022-05-17] MEDS: metroNIDAZOLE 500 mg/NS 100 ML IV SCH ×3 (05:13→21:42)
[2022-05-17 06:51] LABS: BASOPHILS # (AUTO) 0.1 K/uL (0.0-0.2); BASOPHILS % (AUTO) 0.4 % (0.0-2.0); EOSINOPHILS # (AUTO) 0.3 K/uL (0.0-0.4); EOSINOPHILS % (AUTO) 2.1 % (0.0-4.0); HEMATOCRIT 35.9 % (36-48); HEMOGLOBIN 11.9 g/dL (12.0-16.0); LYMPHOCYTES # (AUTO) 3.6 K/uL (1.0-5.5); LYMPHOCYTES % (AUTO) 22.7 % (20.5-51.5); MEAN CORPUSCULAR HEMOGLOBIN 30 pg (27-31); MEAN CORPUSCULAR HGB CONC 33 % (32-36); MEAN CORPUSCULAR VOLUME 91 fL (79.0-98.0); MONOCYTES % (AUTO) 12.4 % (1.7-9.3); NEUTROPHILS # (AUTO) 9.9 K/uL (1.8-7.7); NEUTROPHILS % (AUTO) 62.4 % (40.0-70.0); PLATELET COUNT (AUTO) 407 K/uL (130-430); RED BLOOD CELL COUNT(AUTO) 3.95 MIL/uL (4.2-6.2); RED CELL DISTRIBUTION WIDTH 15.9 % (9.0-15.0); WHITE BLOOD COUNT (AUTO) 15.9 K/uL (4.8-10.8)
--- NOTE | 2022-05-17 07:03 | NUR ---
receive the patient from the evening or night nurse supervisor rn in a stable condition with admitting diagnosis of leukocytosis , aox4 no complain of pain . no sign and symptoms of respiratory distress . will continue to monitor
[2022-05-17 07:04] LABS: C-REACTIVE PROTEIN QUANT 15.9 mg/dL (0-0.5); CALCIUM 8.5 mg/dL (8.4-11.0); CREATININE 1.85 mg/dL (0.55-1.30); POTASSIUM 3.7 mmol/L (3.5-5.1)
[2022-05-17 08:24] LABS: ERYTHROCYTE SEDIMENTATION RATE 64 MM/HR (0-20)
[2022-05-17] MEDS: LACTOBACILLUS RHAMNOSUS GG 1 CAP CAPSULE PO SCH ×2 (10:14→21:38)
[2022-05-17] MEDS: LamoTRIgine 100 MG TABLET PO SCH ×2 (10:14→21:39)
[2022-05-17] MEDS: DICYCLOMINE HCL 10 MG CAPSULE PO SCH ×3 (10:14→21:38)
[2022-05-17] MEDS: PANTOPRAZOLE SODIUM 40 MG/VIAL (PROTONIX) IVP SCH (10:14)
[2022-05-17] MEDS: GABAPENTIN 300 MG CAPSULE PO SCH ×3 (10:15→21:40)
[2022-05-17] MEDS: OLANZapine 10 MG TAB.RAPDIS PO SCH ×2 (10:17→21:40)
[2022-05-17] MEDS: DIVALPROEX SODIUM 500 MG TAB.SR.24H (DEPAKOTE ER) PO SCH ×2 (10:17→21:39)
[2022-05-17] MEDS: D5/0.45 NS 1,000 ML IV SCH (10:24)
[2022-05-17 11:29] VITALS: BP_SYST 113
[2022-05-17] MEDS: VANCOMYCIN HCL ORAL SOLUTION 125 MG/5 ML, 150 ML PO SCH ×4 (13:55→21:39)
[2022-05-17] MEDS: NORMAL SALINE 5 ML DISP.SYRIN IVF SCH ×2 (14:03→21:42)
[2022-05-17 15:50] VITALS: BP_SYST 101
--- NOTE | 2022-05-17 18:40 | NUR ---
WILL ENDORSE to overnight stocker RN for continuity of care
[2022-05-17 19:00] VITALS: BP_SYST 109
--- NOTE | 2022-05-17 19:15 | NUR ---
change of shift.pt.presents quiescent affect;calm,resting.no c/o pain,nausea.pt.capable to ambulate;un-assisted/reposition self.general status stable.respiratory status stable;unlabored@room air.pt.utilizing bsc w/in access of the pt.call light/telephone w/in access of the pt.
[2022-05-17 20:00] VITALS: BP_SYST 109
--- NOTE | 2022-05-17 20:00 | NUR ---
pt.assessed.v/s assessed values wnl.no c/o pain,nausea.pt.apprised that snacks/beverages are available w/in the shift. pt.requested juice;provided.pt.utilizing the bsc w/in access of the pt.iv access intact;mid-line location rt.bicept.call light/ telephone w/in access of the pt.
--- NOTE | 2022-05-17 21:00 | NUR ---
2100p medications administered.pt.capable to ingest the po medications w/out difficulty.pt.requested water;provided. no c/o pain,nausea.call light/telephone w/in access of the pt.
[2022-05-17] MEDS: QUEtiapine FUMARATE 100 MG TABLET PO SCH (21:40)
--- NOTE | 2022-05-17 22:00 | NUR ---
pt.assessed.pt.quiescent;somnolent.per flacc pain mgx pt.absent facial grimaces/body posturing.pt.capable to reposition self. call light/telephone w/in access of the pt.
[2022-05-18] VITALS (7 sets, daily range): BP systolic 91–125
--- NOTE | 2022-05-18 | NUR ---
pt.assessed.v/s assessed values wnl.no c/o pain.nausea.no requests posited@this hour.bsc w/in access of the pt. pt.capable to reposition self.call light/telephone w/in access of the pt.
--- NOTE | 2022-05-18 02:00 | NUR ---
pt.assessed.pt.quiescent.somnolent.per flacc pain mgx pt.absent facial grimaces/body posturing.bsc w/in access of the pt.pt.capable to reposition self.call light/telephone w/in access of the pt.
--- NOTE | 2022-05-18 04:00 | NUR ---
pt.assessed.pt.quiescent;somnolent.per flacc pain mgx pt.absent facial grimaces/body posturing.pt.capable to reposition self. iv access intact.bsc w/in access of the pt.call light/telephone w/in access of the pt.
[2022-05-18] MEDS: metroNIDAZOLE 500 mg/NS 100 ML IV SCH ×3 (05:13→21:28)
[2022-05-18] MEDS: NORMAL SALINE 5 ML DISP.SYRIN IVF SCH ×3 (05:14→21:32)
[2022-05-18] MEDS: DILTIAZEM HCL 30 MG TABLET PO SCH ×3 (05:27→21:25)
--- NOTE | 2022-05-18 06:30 | NUR ---
pt.assessed.v/s assessed p/t administration cardziem.v/s values wnl.cardizem po administered.flagyl abx administered. no c/o pain,nausea.no requests [email or web address] [email or web address] clean w/in access of the pt.pt.capable to reposition self.call light/ telephone w/in access of the pt.
--- NOTE | 2022-05-18 08:45 | NUR ---
KICK PRESS SETTER [facility] Brandy contacted [facility] to obtain update on acceptance. According to [email or web address], they have not accepted patient yet. She also inquired into C-diff test and updated clinicals. Fanny also expressed concern with 5150 hold expiring today @11:30am. as they like to have at least 24 hours left on the hold. [facility] faxed updated clinicals on patient, and included RN extension to provide nursing info on patient ACSW will continue to be available as needed. Addendum: 05/18/22 at 1107 by Brandy MONSON SHAMIR Nava faxed additional progress note from [place] Addendum: 05/18/22 at 1402 by Brandy MONSON SHAMIR Nava contacted [facility] to obtain an update. According to intake, patient's packet is still under review. Addendum: 05/18/22 at 1619 by Brandy MONSON [facility] Brandy placed ambulance on "will call" [facility]
--- NOTE | 2022-05-18 09:16 | NUR ---
receive the patient from the rn shift mgr rn with admitting diagnosis benadryl overdose . nop complain of pain at this time . no sign and symptoms of respiratory distress . will continue to monitor
--- NOTE | 2022-05-18 09:30 | NUR ---
md huitron made some rounds . strongly recommended to have the cdiff sample submitted to the lab for [facility] to accept the patient .
[2022-05-18] MEDS: LamoTRIgine 100 MG TABLET PO SCH ×2 (11:03→21:24)
[2022-05-18] MEDS: PANTOPRAZOLE SODIUM 40 MG/VIAL (PROTONIX) IVP SCH (11:03)
[2022-05-18] MEDS: LACTOBACILLUS RHAMNOSUS GG 1 CAP CAPSULE PO SCH ×2 (11:03→21:23)
[2022-05-18] MEDS: DICYCLOMINE HCL 10 MG CAPSULE PO SCH ×3 (11:03→21:23)
[2022-05-18] MEDS: VANCOMYCIN HCL ORAL SOLUTION 125 MG/5 ML, 150 ML PO SCH ×4 (11:04→21:22)
[2022-05-18] MEDS: DIVALPROEX SODIUM 500 MG TAB.SR.24H (DEPAKOTE ER) PO SCH ×2 (11:04→21:24)
[2022-05-18] MEDS: OLANZapine 10 MG TAB.RAPDIS PO SCH ×2 (11:04→21:23)
[2022-05-18] MEDS: GABAPENTIN 300 MG CAPSULE PO SCH ×3 (11:05→21:23)
--- NOTE | 2022-05-18 12:30 | NUR ---
the rn collected the stool sample for cdiff . submitted to the laboratory for evaluation
--- NOTE | 2022-05-18 13:02 | NUR ---
CONTAINER FILLER ACSW Brandy contacted Dr. Lepe to request reassessment of patient to evaluate for appropriateness of continued 5150 hold. ACSW will continue to be available as needed.
--- NOTE | 2022-05-18 14:00 | NUR ---
RETAIL ADVERTISING EXECUTIVE SHAMIR Nava met with patient at bedside. ACSW reintroduced self and patient was open to contact. SHAMIR Nava discussed discharge plan of inpatient psych treatment. Patient expressed wanting to return to previous living arrangement at [facility] (past 2 years). Patient denies any current hallucinations or SI at this time. ACSW also informed patient, request for Dr. Lepe to reassess patient for 5150, patient expressed her understanding\ ACSW and patient discussed the importance of medication compliance, mental health care, and medical/physical health. ACSW will continue to be available as needed.
--- NOTE | 2022-05-18 16:12 | NUR ---
the case advocate gave me the packet for discharge . she said we will wait for md rae to make rounds and see the patient . " will call the ambulance
--- NOTE | 2022-05-18 18:11 | NUR ---
md rae had seen the patient . recommended to call [facility] if [facility] are willing to accept the patient while we are waiting for the c diff results
--- NOTE | 2022-05-18 18:47 | NUR ---
will endorse to assistant casino shift manager rn for continuity of care
--- NOTE | 2022-05-18 19:00 | NUR ---
Received pt in bed.AOX4.On RA.Not in respiratory noted.No complaint of pain noted at this time.R upper arm PICC line noted.Bed in lowest position.Bedside table and call light are within reach.
[2022-05-18] MEDS: traMADol HCL HCL 50 MG TABLET (ULTRAM) PO PRN (21:22)
[2022-05-18] MEDS: QUEtiapine FUMARATE 100 MG TABLET PO SCH (21:26)
[2022-05-19] VITALS: BP_SYST 119
[2022-05-19] MEDS: NORMAL SALINE 5 ML DISP.SYRIN IVF SCH ×2 (05:06→15:18)
[2022-05-19] MEDS: metroNIDAZOLE 500 mg/NS 100 ML IV SCH ×2 (05:06→15:16)
[2022-05-19] MEDS: DILTIAZEM HCL 30 MG TABLET PO SCH ×2 (05:09→14:00)
[2022-05-19 06:52] LABS: BASOPHILS # (AUTO) 0.1 K/uL (0.0-0.2); BASOPHILS % (AUTO) 0.9 % (0.0-2.0); EOSINOPHILS # (AUTO) 0.3 K/uL (0.0-0.4); EOSINOPHILS % (AUTO) 2.1 % (0.0-4.0); HEMATOCRIT 36.1 % (36-48); HEMOGLOBIN 12.1 g/dL (12.0-16.0); LYMPHOCYTES # (AUTO) 4.3 K/uL (1.0-5.5); LYMPHOCYTES % (AUTO) 29.7 % (20.5-51.5); MEAN CORPUSCULAR HEMOGLOBIN 30 pg (27-31); MEAN CORPUSCULAR HGB CONC 34 % (32-36); MEAN CORPUSCULAR VOLUME 90 fL (79.0-98.0); MONOCYTES # (AUTO) 1.5 K/uL (0.0-1.0); MONOCYTES % (AUTO) 10.1 % (1.7-9.3); NEUTROPHILS # (AUTO) 8.4 K/uL (1.8-7.7); NEUTROPHILS % (AUTO) 57.2 % (40.0-70.0); PLATELET COUNT (AUTO) 515 K/uL (130-430); RED BLOOD CELL COUNT(AUTO) 4.01 MIL/uL (4.2-6.2); RED CELL DISTRIBUTION WIDTH 15.5 % (9.0-15.0); WHITE BLOOD COUNT (AUTO) 14.6 K/uL (4.8-10.8)
[2022-05-19 07:00] VITALS: BP_SYST 93
--- NOTE | 2022-05-19 07:23 | NUR ---
receive the patient from the night HORACE Gaytan in a stable condition with admitting diagnosis of benadryl overdose aox4 , no complain of pain at this time . no sign and symptoms of respiratory distress . will continue to monitor.
[2022-05-19 07:49] LABS: ALBUMIN 2.1 g/dL (3.4-4.8); C-REACTIVE PROTEIN QUANT 4.8 mg/dL (0-0.5); CALCIUM 8.7 mg/dL (8.4-11.0); CREATININE 2.11 mg/dL (0.55-1.30); POTASSIUM 3.8 mmol/L (3.5-5.1); TOTAL BILIRUBIN 0.3 mg/dL (0.0-1.0)
[2022-05-19 08:05] LABS: ERYTHROCYTE SEDIMENTATION RATE 18 MM/HR (0-20)
[2022-05-19] MEDS: DICYCLOMINE HCL 10 MG CAPSULE PO SCH ×2 (09:32→15:16)
[2022-05-19] MEDS: LACTOBACILLUS RHAMNOSUS GG 1 CAP CAPSULE PO SCH (09:33)
[2022-05-19] MEDS: DIVALPROEX SODIUM 500 MG TAB.SR.24H (DEPAKOTE ER) PO SCH (09:35)
[2022-05-19] MEDS: PANTOPRAZOLE SODIUM 40 MG/VIAL (PROTONIX) IVP SCH (09:35)
[2022-05-19] MEDS: LamoTRIgine 100 MG TABLET PO SCH (09:37)
[2022-05-19] MEDS: GABAPENTIN 300 MG CAPSULE PO SCH ×2 (09:38→15:14)
[2022-05-19] MEDS: VANCOMYCIN HCL ORAL SOLUTION 125 MG/5 ML, 150 ML PO SCH ×2 (09:40→15:18)
[2022-05-19] MEDS: OLANZapine 10 MG TAB.RAPDIS PO SCH (09:47)
[2022-05-19] MEDS ORDERED: FAMO40TA7 PO (10:29)
--- NOTE | 2022-05-19 11:30 | NUR ---
CROP OR LIVESTOCK TENANT FARMER ACSW Brandy met with patient at bedside. Patient was awake, alert and oriented x4. ACSW and patient discussed safe discharge and plans for her to return to [facility] [address] [place] [address] [id number] ACSW provided direction to patient in using room phone to contact her mother to provide her update as requested. ACSW and patient discussed the importance of psych and medical followup to continue care plan. ACSW will continue to be available as needed
[2022-05-19 12:00] VITALS: BP_SYST 93
[2022-05-19 12:44] VITALS: BP_SYST 101
[2022-05-19 16:38] VITALS: BP_SYST 96
--- NOTE | 2022-05-19 17:15 | NUR ---
made discharge papers to home . made also some discharge teachings with the patient . remove the id , iv .pt was bought to the lobby with mother to a waiting private care in a stable condition
[2022-05-19] MEDS ORDERED: POTASSIUM CHLORIDE 40 MEQ in NS 250 ML IV ONE (18:00)
--- NOTE | 2022-05-20 14:52 | NUR ---
Dispo Code 01
== END 2022-05-19 17:20 | disposition home or self-care (01) | DRG 871 ==
LOC: SED 21:07 → STU 05-11 04:09 → SMU 05-11 05:20
PROVIDERS: ADMIT Preventive Medicine Preventive Medicine/Occupational Environmental Medicine; ATTEND Preventive Medicine Preventive Medicine/Occupational Environmental Medicine
PROC: 02HV33Z Insertion of Infusion Device into Superior Vena Cava, Percutaneous Approach (ICD-10-PCS; 2022-05-11)
PROC: 0DB78ZX Excision of Stomach, Pylorus, Via Natural or Artificial Opening Endoscopic, Diagnostic (ICD-10-PCS; 2022-05-13)
PROC: 0DB98ZX Excision of Duodenum, Via Natural or Artificial Opening Endoscopic, Diagnostic (ICD-10-PCS; principal; 2022-05-13 08:00)
DX: A41.9 Sepsis, unspecified organism (principal); E43 Unspecified severe protein-calorie malnutrition; J69.0 Pneumonitis due to inhalation of food and vomit; N17.9 Acute kidney failure, unspecified; E87.20 Acidosis, unspecified; T45.0X1A Poisoning by antiallergic and antiemetic drugs, accidental (unintentional), initial encounter; Z20.822 Contact with and (suspected) exposure to COVID-19; F31.9 Bipolar disorder, unspecified; E83.51 Hypocalcemia; E88.09 Other disorders of plasma-protein metabolism, not elsewhere classified; K59.00 Constipation, unspecified; E66.01 Morbid (severe) obesity due to excess calories; K52.9 Noninfective gastroenteritis and colitis, unspecified; K21.9 Gastro-esophageal reflux disease without esophagitis; K29.70 Gastritis, unspecified, without bleeding; K27.9 Peptic ulcer, site unspecified, unspecified as acute or chronic, without hemorrhage or perforation; K29.80 Duodenitis without bleeding; E83.52 Hypercalcemia; E87.6 Hypokalemia; F25.1 Schizoaffective disorder, depressive type; K44.9 Diaphragmatic hernia without obstruction or gangrene; R73.9 Hyperglycemia, unspecified; D64.9 Anemia, unspecified; M17.0 Bilateral primary osteoarthritis of knee; E83.39 Other disorders of phosphorus metabolism; N18.30 Chronic kidney disease, stage 3 unspecified; D75.839 Thrombocytosis, unspecified; Y92.89 Other specified places as the place of occurrence of the external cause; Z68.39 Body mass index [BMI] 39.0-39.9, adult
CPT/HCPCS: 36415; 43239; 70450-TC; 71045; 74018; 76376; 76770; 80048; 80053; 80164; 80307; 81003; 82009; 82962; 83051; 83605; 83690; 83735; 84100; 84484; 85007; 85014; 85025; 85027; 85048; 85049-TC; 85610-TC; 85651-TC; 85730-TC; 86140; 87040; 87081; 87230-TC; 88305; 88312; 88313; 93005; 96365; 96366; 96367; 99285; C9113; G0480; G0481; G0482; J2175; J2250; J2543; J3370; J3480; J3490; J7050

== ENCOUNTER 2022-05-21 17:41 | Emergency (ER) | payer OTHER, MEDICAID ==
[~2022-05-21] VITALS: Ht 165.1 cm; Wt 113.4 kg
[2022-05-21 17:41] VITALS: BP_SYST 132
[~2022-05-21 17:41] MED LIST changes: +AUG875 PO; +CAR30 PO; +DICY10CA13 PO; +DIVA500T4 PO; +FAMO40TA7 PO; +LACT1CAP57 PO; +LAM100 PO; +METR-154 PO; +NEU300 PO; +OLAN20TA3 PO; +SER100 PO
[2022-05-21 19:38] LABS: HEMOGLOBIN 13.2 g/dL (12.0-16.0); RED CELL DISTRIBUTION WIDTH 15.5 % (9.0-15.0)
[2022-05-21 19:42] LABS: HEMATOCRIT 38.9 % (36-48); MEAN CORPUSCULAR HEMOGLOBIN 30 pg (27-31); MEAN CORPUSCULAR HGB CONC 34 % (32-36); MEAN CORPUSCULAR VOLUME 89 fL (79.0-98.0); PLATELET COUNT (AUTO) 539 K/uL (130-430); RED BLOOD CELL COUNT(AUTO) 4.35 MIL/uL (4.2-6.2)
[2022-05-21 19:49] LABS: WHITE BLOOD COUNT (AUTO) 28.7 K/uL (4.8-10.8)
[2022-05-21 20:30] LABS: BAND % (MANUAL) 8 % (0-6); LYMPHOCYTES % (MANUAL) 16 % (20-46); MONOCYTES % (MANUAL) 6 % (0-11)
[2022-05-21 20:43] LABS: CALCIUM 9.1 mg/dL (8.4-11.0); CREATININE 2.57 mg/dL (0.55-1.30); POTASSIUM 3.8 mmol/L (3.5-5.1)
[2022-05-21 20:48] LABS: ALBUMIN 2.8 g/dL (3.4-4.8); TOTAL BILIRUBIN 0.2 mg/dL (0.0-1.0)
[2022-05-21 21:19] LABS: BILIRUBIN,URINE NEGATIVE (NEGATIVE); BLOOD, URINE NEGATIVE (NEGATIVE); CLARITY/URINE CLEAR (CLEAR); COLOR,URINE YELLOW (YELLOW); GLUCOSE,URINE NEGATIVE (NEGATIVE); KETONES,URINE NEGATIVE (NEGATIVE); LEUKOCYTE ESTERASE ,URINE NEGATIVE (NEGATIVE); NITRITE, URINE NEGATIVE (NEGATIVE); PROTEIN URINE NEGATIVE (NEGATIVE); UROBILINOGEN,URINE 0.2 (0.2-1.0)
[2022-05-21] MEDS ORDERED: cefTRIAXone 1 GM IVPB PREMIX 50 ML IV ONE (21:45)
[2022-05-21] MEDS ORDERED: NACL 0.9% IV ONE (21:45)
[2022-05-21 21:51] LABS: BARBITURATE, URINE NEGATIVE (NEG <=200); BENZODIAZEPINE, URINE NEGATIVE (NEG <=150); CANNABINOID, URINE NEGATIVE (NEG <=50); COCAINE, URINE NEGATIVE (NEG <=150); METHAMPHETAMINES SCREEN,URINE NEGATIVE (NEG <=500); OPIATE, URINE NEGATIVE (NEG <=100); PHENCYCLIDINE SCREEN,URINE NEGATIVE (NEG <=25); UR TRICYCLIC ANTIDEPRESSANTS NEGATIVE (NEG <=300); URINE AMPHETAMINE NEGATIVE (NEG <=500); URINE METHADONE NEGATIVE (NEG <=200); URINE OXYCODONE SCREEN NEGATIVE (NEG <=100); URINE PROPOXYPHENE SCREEN NEGATIVE (NEG <=300)
[2022-05-22 05:34] VITALS: BP_SYST 124
== END 2022-05-22 05:08 | disposition left against medical advice (07) ==
LOC: SED 17:41
DX: F19.10 Other psychoactive substance abuse, uncomplicated (principal); A41.9 Sepsis, unspecified organism; R41.82 Altered mental status, unspecified; N17.9 Acute kidney failure, unspecified; Z79.899 Other long term (current) drug therapy; Z20.822 Contact with and (suspected) exposure to COVID-19
CPT/HCPCS: 99291; 96365; 70450; 71045; 87426; 85027; 80307; 80053; 85007; 87040; 36415; 76376; 81025; 83605; 81003; J0696